=== PATIENT | female | born 1945 | race Two or more races ===

== ENCOUNTER → 2018-06-15 | Outpatient (CLI) | payer OTHER | END | disposition home or self-care (01) | LOC: NUCLEAR 09:00 | DX: C43.72 Malignant melanoma of left lower limb, including hip (principal) | CPT/HCPCS: 78816; A9552 ==

== ENCOUNTER 2019-08-09 09:36 | Outpatient (CLI) | payer OTHER | END 2019-08-09 09:44 | disposition home or self-care (01) | LOC: NUCLEAR 09:36 | PROVIDERS: ATTEND Internal Medicine Hematology & Oncology | DX: C43.0 Malignant melanoma of lip (principal); C50.411 Malignant neoplasm of upper-outer quadrant of right female breast | CPT/HCPCS: 78815; A9552 ==

== ENCOUNTER 2020-05-11 09:31 | Outpatient (CLI) | payer OTHER | END 2020-05-11 09:32 | disposition home or self-care (01) | LOC: NUCLEAR 09:31 | PROVIDERS: ATTEND Internal Medicine Hematology & Oncology | DX: C50.411 Malignant neoplasm of upper-outer quadrant of right female breast (principal); C43.52 Malignant melanoma of skin of breast | CPT/HCPCS: 78816; A9552 ==

== ENCOUNTER 2020-10-07 13:28 | Inpatient (IN) | payer OTHER ==
[~2020-10-07] VITALS: Ht 167.6 cm; Wt 97.5 kg
[2020-10-07] MEDS ORDERED: GLIPIZIDE XL2.5 MG PO (13:46)
[2020-10-07] MEDS ORDERED: ANASTROZOLE1 MG PO (13:47)
[2020-10-07] MEDS ORDERED: LEVOFLOXACIN5 ML (13:48)
[2020-10-07] MEDS ORDERED: KAPSPARGO SPRIN25 MG PO (13:49)
[2020-10-07] MEDS ORDERED: ACID CONTROLLER20 MG PO (13:49)
[2020-10-07] MEDS ORDERED: SYNTHROID100 MCG PO (13:50)
[2020-10-16] MEDS ORDERED: GABAPENTIN300 MG PO (12:46)
[2020-10-16] MEDS ORDERED: METOPROLOL TART50 MG PO (12:46)
[2020-10-16] MEDS ORDERED: PREDNISONE 5MG PO ×2 (12:47)
== END 2020-10-16 14:56 | disposition home or self-care (01) | DRG 641 ==
LOC: ER 13:28 → MEDJ 22:51
PROVIDERS: ADMIT Internal Medicine; ATTEND Internal Medicine
PROC: 3E0F7SF Introduction of Other Gas into Respiratory Tract, Via Natural or Artificial Opening (ICD-10-PCS; 2020-10-08)
PROC: 8E0ZXY6 Isolation (ICD-10-PCS; 2020-10-08)
PROC: 02HV33Z Insertion of Infusion Device into Superior Vena Cava, Percutaneous Approach (ICD-10-PCS; principal; 2020-10-10)
DX: E86.0 Dehydration (principal); N39.0 Urinary tract infection, site not specified; C79.89 Secondary malignant neoplasm of other specified sites; E27.3 Drug-induced adrenocortical insufficiency; E87.1 Hypo-osmolality and hyponatremia; Z20.822 Contact with and (suspected) exposure to COVID-19; I10 Essential (primary) hypertension; E03.8 Other specified hypothyroidism; E11.65 Type 2 diabetes mellitus with hyperglycemia; T45.1X5A Adverse effect of antineoplastic and immunosuppressive drugs, initial encounter

== ENCOUNTER 2020-12-04 07:45 | Outpatient (CLI) | payer OTHER ==
[~2020-12-04 07:45] MED LIST: ACID CONTROLLER20 MG PO; ANASTROZOLE1 MG PO; GABAPENTIN300 MG PO; GLIPIZIDE XL2.5 MG PO; KAPSPARGO SPRIN25 MG PO; LEVOFLOXACIN5 ML; METOPROLOL TART50 MG PO; PREDNISONE 5MG PO; SYNTHROID100 MCG PO
== END 2020-12-04 07:55 | disposition home or self-care (01) ==
LOC: TOM 07:45
PROVIDERS: ATTEND Internal Medicine Hematology & Oncology
DX: M54.59 Other low back pain (principal); N28.89 Other specified disorders of kidney and ureter; R10.84 Generalized abdominal pain; C50.411 Malignant neoplasm of upper-outer quadrant of right female breast
CPT/HCPCS: 72132; 74177; Q9965

== ENCOUNTER 2021-05-19 08:10 | Outpatient (CLI) | payer OTHER | END 2021-05-19 08:21 | disposition home or self-care (01) | LOC: NUCLEAR 08:10 | PROVIDERS: ATTEND Internal Medicine Hematology & Oncology | DX: C50.411 Malignant neoplasm of upper-outer quadrant of right female breast (principal) ==

== ENCOUNTER 2021-07-19 08:37 | Outpatient (CLI) | payer OTHER | END 2021-07-19 08:41 | disposition home or self-care (01) | LOC: MAMO-SONO 08:37 | PROVIDERS: ATTEND Internal Medicine Hematology & Oncology | DX: C50.411 Malignant neoplasm of upper-outer quadrant of right female breast (principal) ==

== ENCOUNTER 2022-07-01 07:36 | Outpatient (CLI) | payer OTHER | END 2022-07-01 07:43 | disposition home or self-care (01) | LOC: NUCLEAR 07:36 | PROVIDERS: ATTEND Internal Medicine Hematology & Oncology | DX: C43.0 Malignant melanoma of lip (principal) | CPT/HCPCS: 78815; A9552 ==

== ENCOUNTER 2022-07-11 07:26 | Outpatient (CLI) | payer OTHER | END 2022-07-11 07:31 | disposition home or self-care (01) | LOC: MAMO-SONO 07:26 | PROVIDERS: ATTEND Surgery | DX: Z12.31 Encounter for screening mammogram for malignant neoplasm of breast (principal); N60.11 Diffuse cystic mastopathy of right breast ==